=== PATIENT | male | born 1990 | race Caucasian/White ===

== ENCOUNTER 2021-04-02 13:30 | Emergency (ER) | payer SELFPAY ==
[~2021-04-02 13:30] MED LIST: AUGMENTIN 875-1 EACH PO; PROVENTIL HFA6.7 GM INH; ZITHROMAX250 MG PO
[2021-04-02] MEDS ORDERED: AMOXICILLIN875 MG PO (14:33)
== END 2021-04-02 14:43 | disposition home or self-care (01) ==
LOC: ER1 13:30
DX: J02.0 Streptococcal pharyngitis (principal); Z20.822 Contact with and (suspected) exposure to COVID-19
CPT/HCPCS: 87081; 87880; 99283; U0003